=== PATIENT | male | born 2000 | race American Indian/Alaskan Native ===

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

== ENCOUNTER 2022-02-02 23:43 | Emergency (ER) | payer SELFPAY ==
[2022-02-03 00:04] VITALS: BP 125/73
== END 2022-02-03 03:15 | disposition left against medical advice (07) ==
LOC: ED 23:43
DX: Z04.1 Encounter for examination and observation following transport accident (principal); Z53.21 Procedure and treatment not carried out due to patient leaving prior to being seen by health care provider; V89.2XXA Person injured in unspecified motor-vehicle accident, traffic, initial encounter; Y93.89 Activity, other specified; Y92.89 Other specified places as the place of occurrence of the external cause; Y99.8 Other external cause status